=== PATIENT | male | born 1930 | race Caucasian/White ===

== ENCOUNTER 2017-07-24 12:12 | Emergency (ER) | payer OTHER, MEDICARE ==
[2017-07-24 12:39] LABS: #Basophils 0.1 thou/uL (0.0-0.2); #Eosinphils 0.1 thou/uL (0.0-0.7); #Lymphocytes 1.4 thou/uL (1.20-3.40); #Neutrophils 10.1 thou/uL (1.40-6.50); %Basophils 0.6 % (0.0-1.0); %Lymphocytes 11.2 % (21.0-51.0); %Monocytes 7.7 % (0.0-10.0); %Neutrophils 79.5 % (42.0-75.0); Hemoglobin 12.8 g/dL (14.0-18.0); Mean Corpuscular HGB CONC 34.1 g/dL (32.0-36.0); Mean Corpuscular Hemoglobin 31.5 pg (27.0-31.0); Mean Corpuscular Volume 92.5 fl (80.0-94.0); Mean Platelet Volume 7.8 fL (7.4-10.4); Platelet Count 178 thou/uL (130-400); RBC Distribution Width 12.6 % (11.5-14.5); Red Blood Cell (RBC) Count 4.07 mill/uL (4.70-6.10); White Blood Cell (WBC) Count 12.7 thou/uL (4.8-10.8)
[2017-07-24 13:04] LABS: ALT (SGPT) 17 U/L (8-55); AST (SGOT) 17 U/L (5-34); Albumin 3.3 g/dL (3.4-4.8); Alkaline Phosphatase 87 U/L (40-150); Anion Gap 13 mmol/L (10-20); BUN (Urea Nitrogen) 14 mg/dL (8.4-25.7); Bilirubin, Total 1.1 mg/dL (0.2-1.2); CK (CPK) 28 U/L (30-200); Calc. Creatinine Clearance 0 mL/min (70-130); Calcium 8.5 mg/dL (7.8-10.44); Carbon Dioxide 26 mmol/L (23-31); Chloride 101 mmol/L (98-107); Estimated GFR-MDRD 66; Globulin 2.1 g/dL (2.4-3.5); Glucose 73 mg/dL (83-110); Lipase 32 U/L (8-78); Potassium 3.9 mmol/L (3.5-5.1); Protein, Total 5.4 g/dL (5.8-8.1); Sodium 136 mmol/L (136-145)
[2017-07-24 13:20] LABS: CKMB 1.3 ng/mL (0-6.6); Troponin I 0.066 ng/mL (< 0.028)
--- NOTE | 2017-07-24 13:32 | RAD ---
SINGLE VIEW OF CHEST: Date: 07/24/17 COMPARISON: None. HISTORY: Chest pain. FINDINGS/IMPRESSION: Single view of the chest shows a cardiomediastinal silhouette which is upper limits of normal in size . The patient is status post sternotomy. There is no evidence of consolidation, mass, or pleural effu vidal. A sclerotic lesion is seen in the proximal left humerus, which may represent a bone infarction or cartilaginous lesion. POS: [facility]
== END 2017-07-24 14:50 | disposition left against medical advice (07) ==
LOC: ERS 12:12
DX: Z53.21 Procedure and treatment not carried out due to patient leaving prior to being seen by health care provider (principal)
CPT/HCPCS: 71045; 80053; 82553; 83690; 84484; 85025; 93005; 94760

== ENCOUNTER 2017-11-02 16:47 | Emergency (ER) | payer MEDICARE, OTHER ==
[2017-11-02] MEDS ORDERED: traMADol HCl 50 MG TAB ONE (17:30)
[2017-11-02] MEDS ORDERED: Adacel (T-DAP) 0.5 ML VIAL ONE (17:31)
[2017-11-02] MEDS ORDERED: Acetaminophen/Codeine 30-300mg Tablet ONE (18:32)
--- NOTE | 2017-11-02 19:00 | CT ---
HEAD CT WITHOUT CONTRAST: 11/02/2017 HISTORY: Fell out of bed. Trauma. Pain. COMPARISON: 11/28/2016 TECHNIQUE: Serial axial CT imaging is obtained at 5 mm intervals, from the vertex through the skull base, withou t contrast. FINDINGS: There is near complete opacification of the sphenoid sinuses. There is partial opacification of the bilateral ethmoid air cells, and there is complete opacification of the bilateral maxillary sinuses. Paranasal sinus disease is similar when compared to prior imaging. There are areas of marked increa sed density within the paranasal sinus secretions, which could signify chronic sinusitis, inspissated secretions, and/or fungal sinusitis. There is no displaced fracture seen. There is no intracranial hemorrhage, midline shift, or mass effect. There is mild diffuse cerebral volume loss. IMPRESSION: Prominent, stable paranasal sinus opacification. No intracranial hemorrhage or displaced calvarial f racture. POS: [facility]
--- NOTE | 2017-11-02 19:07 | CT ---
CT CERVICAL SPINE: 11/02/2017 PROVIDED CLINICAL HISTORY: Fall. FINDINGS: There is no evidence for fracture or traumatic subluxation. Advanced cervical degenerative changes a re seen. No prevertebral soft tissue swelling is evident. There is material present within the depe ndent portion of the trachea that may reflect secretions or aspiration. The visualized lung apices a ppear clear. IMPRESSION: 1. No evidence for fracture or traumatic subluxation. 2. Secretions versus aspiration in the trachea. POS: [facility]
--- NOTE | 2017-11-02 19:28 | RAD ---
LEFT HAND RADIOGRAPHS THREE VIEWS: 11/02/2017 PROVIDED CLINICAL HISTORY: Left hand pain, status post injury. FINDINGS: There is no evidence for fracture or other acute osseous abnormality. If there is persistent clinica l concern, conservative management and follow-up imaging are advised. IMPRESSION: As above. POS: [facility]
== END 2017-11-02 18:40 | disposition home or self-care (01) ==
LOC: ERS 16:47
DX: S61.411A Laceration without foreign body of right hand, initial encounter (principal); S61.412A Laceration without foreign body of left hand, initial encounter; S61.511A Laceration without foreign body of right wrist, initial encounter; S10.91XA Abrasion of unspecified part of neck, initial encounter; E78.5 Hyperlipidemia, unspecified; I10 Essential (primary) hypertension; F41.9 Anxiety disorder, unspecified; F32.9 Major depressive disorder, single episode, unspecified; Z79.899 Other long term (current) drug therapy; Z79.01 Long term (current) use of anticoagulants; W06.XXXA Fall from bed, initial encounter
CPT/HCPCS: 70450; 72125; 90471; 90715

== ENCOUNTER 2019-06-17 05:53 | Emergency (ER) | payer MEDICARE ==
[2019-06-17] MEDS ORDERED: Ketorolac Tromethamine 30 MG/ML VIAL ONE (06:17)
--- NOTE | 2019-06-17 07:13 | CT ---
CT BRAIN NONCONTRAST: DATE: 06/17/2019 HISTORY: 89-year-old male status post head trauma from fall FINDINGS: There is no evidence of acute intra-axial or extra-axial hemorrhage. There is no midline shift or any other mass effect. There is no extra-axial fluid collection. There is no evidence of obstructive hydrocephalus. Calvarium is intact. Total opacification of bilateral maxillary, sphenoid, all right e thmoid, many of left ethmoid, and right frontal, sinuses similar to 11/02/2017. New finding of opacification of bilateral middle ear cavities mastoid antra, and mastoid air cells. IMPRESSION: 1. No acute intracranial findings. 2. New bilateral otomastoid effusions. 3. Severe opacification of most of the paranasal sinuses, chronic.
--- NOTE | 2019-06-17 07:31 | RAD ---
Radiograph pelvis one view: DATE: 06/17/2019 Time: 7:42 AM HISTORY: 89-year-old male status post acute pelvic trauma from fall. FINDINGS: Pelvic ring appears to be intact with no evidence of grossly displaced fracture and no dislocation. IMPRESSION: No fracture identified.
--- NOTE | 2019-06-17 07:32 | RAD ---
RADIOGRAPH RIGHT HIP 2VIEWS: DATE: 06/17/2019 HISTORY: 89-year-old male with right hip acute traumatic pain from fall FINDINGS: There is no dislocation. No fracture is identified. IMPRESSION: No fracture.
[2019-06-17 08:19] LABS: #Basophils 0.1 thou/uL (0.0-0.2); #Eosinphils 0.2 thou/uL (0.0-0.7); #Lymphocytes 1.9 thou/uL (1.20-3.40); #Monocytes 1.1 thou/uL (0.11-0.59); #Neutrophils 12.3 thou/uL (1.40-6.50); %Basophils 0.3 % (0.0-1.0); %Eosinophils 1.1 % (0.0-10.0); %Lymphocytes 12.3 % (21.0-51.0); %Monocytes 6.8 % (0.0-10.0); %Neutrophils 79.5 % (42.0-75.0); Hemoglobin 13.4 g/dL (14.0-18.0); Mean Corpuscular HGB CONC 34.5 g/dL (32.0-36.0); Mean Corpuscular Hemoglobin 31.5 pg (27.0-31.0); Mean Corpuscular Volume 91.3 fL (78.0-98.0); Mean Platelet Volume 7.7 fL (7.4-10.4); Platelet Count 230 thou/uL (130-400); Red Blood Cell (RBC) Count 4.27 mill/uL (4.70-6.10); White Blood Cell (WBC) Count 15.5 thou/uL (4.8-10.8)
[2019-06-17 08:49] LABS: ALT (SGPT) 15 U/L (8-55); AST (SGOT) 21 U/L (5-34); Albumin 3.5 g/dL (3.4-4.8); Alkaline Phosphatase 128 U/L (40-110); Anion Gap 12 mmol/L (10-20); BUN (Urea Nitrogen) 14 mg/dL (8.4-25.7); Bilirubin, Total 1.3 mg/dL (0.2-1.2); Calc. Creatinine Clearance 0 mL/min (70-130); Calcium 8.9 mg/dL (7.8-10.44); Carbon Dioxide 26 mmol/L (23-31); Chloride 103 mmol/L (98-107); Estimated GFR-MDRD 71; Globulin 2.6 g/dL (2.4-3.5); Glucose 120 mg/dL (83-110); Potassium 3.9 mmol/L (3.5-5.1); Protein, Total 6.1 g/dL (5.8-8.1); Sodium 137 mmol/L (136-145)
--- NOTE | 2019-06-17 09:25 | CT ---
EXAM: 1. CT of the chest with contrast 2. CT of the abdomen and pelvis with contrast 3. Limited CT of the thoracic and lumbosacral spine with contrast HISTORY: Trauma with chest pain, abdominal pain, and back pain. COMPARISON: None TECHNIQUE: 1. Multiple contiguous axial images were obtained in a CT the chest with contrast. Coronal reformats were performed. 2. Multiple contiguous axial images were obtained in a CT of the abdomen and pelvis with contrast. Co sammy reformats were performed. 3. Limited CTs of the thoracic and lumbosacral spines were performed with contrast. Sagittal and shaji nal re-reformats were created based off images obtained in the chest, abdomen, and pelvic CTs. FINDINGS: CT CHEST: Mediastinum: Heart is enlarged in size without focal cardiac abnormality. No hilar or mediastinal lym phadenopathy. No mediastinal hemorrhage. Lungs: No focal infiltrates or nodules. Pleural space: No pneumothorax or pleural effusion. Thoracic bones: No evidence of acute fracture. Thoracic chest wall: Unremarkable. CT ABDOMEN/PELVIS: Peritoneum: No free air or free fluid, or stranding changes. Liver: There is a 5 mm low-density lesion in the left lobe, likely cyst. Gallbladder: Unremarkable. Adrenal glands: Unremarkable. Kidneys: There is a cyst in the left kidney. Spleen: There is a 5 mm low-density lesion in the spleen likely cyst. Pancreas: Unremarkable. Bowel: Colonic diverticulosis. Retroperitoneum: No lymphadenopathy. Pelvis: No focal mass or abnormality. The prostate is enlarged. Pelvic bones: No acute fracture identified. LIMITED CT OF THE THORACIC AND LUMBOSACRAL SPINE: No fracture or subluxation is seen. No prevertebral soft tissue swelling are present. There are posto p changes and metallic hardware at L1-L2 level. 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 IMPRESSION: 1. No evidence of acute intrathoracic abnormality 2. No evidence of acute intra-abdominal or pelvic abnormality 3. No evidence of acute osseous abnormality of the thoracic or lumbosacral spine.
[2019-06-17] MEDS ORDERED: Iopamidol-370 76% 500 ML 1 ML ONE (10:45)
== END 2019-06-17 10:13 | disposition home or self-care (01) ==
LOC: ERS 05:53
DX: S41.012A Laceration without foreign body of left shoulder, initial encounter (principal); S51.812A Laceration without foreign body of left forearm, initial encounter; S00.01XA Abrasion of scalp, initial encounter; M54.5 Low back pain; E78.5 Hyperlipidemia, unspecified; I10 Essential (primary) hypertension; F41.9 Anxiety disorder, unspecified; F32.9 Major depressive disorder, single episode, unspecified; Z79.899 Other long term (current) drug therapy; W01.0XXA Fall on same level from slipping, tripping and stumbling without subsequent striking against object, initial encounter
CPT/HCPCS: 70450; 71260; 72170; 74177; 80053; 85025; 96372; J1885; Q9967

== ENCOUNTER 2020-03-12 17:22 | Emergency (ER) | payer MEDICARE, OTHER ==
[2020-03-12 18:13] LABS: #Lymphocytes 1.5 thou/uL (1.20-3.40); #Monocytes 0.8 thou/uL (0.11-0.59); #Neutrophils 9.1 thou/uL (1.40-6.50); %Basophils 0.1 % (0.0-1.0); %Eosinophils 0.3 % (0.0-10.0); %Lymphocytes 13.3 % (21.0-51.0); %Monocytes 7.2 % (0.0-10.0); %Neutrophils 79.1 % (42.0-75.0); Hemoglobin 12.9 g/dL (14.0-18.0); Mean Corpuscular HGB CONC 32.7 g/dL (32.0-36.0); Mean Corpuscular Hemoglobin 28.9 pg (27.0-31.0); Mean Corpuscular Volume 88.3 fL (78.0-98.0); Mean Platelet Volume 8.8 fL (7.4-10.4); Platelet Count 232 thou/uL (130-400); RBC Distribution Width 13.9 % (11.5-14.5); Red Blood Cell (RBC) Count 4.46 mill/uL (4.70-6.10); White Blood Cell (WBC) Count 11.5 thou/uL (4.8-10.8)
[2020-03-12 18:20] LABS: Bilirubin Negative (Negative); Blood, Urine Negative (Negative); Clarity Clear (Clear); Glucose, Urine (Dipstick) Normal (Negative); Ketone, Urine Negative (Negative); Leukocyte Negative Leu/uL (Negative); Nitrite Negative (Negative); Protein, Urine (Dipstick) 20 mg/dL (Neg-Trace); Specific Gravity, Urine 1.028 (1.002-1.036); Urobilinogen Normal mg/dL (Less than 2); pH, Urine 5.5 (5.0-9.0)
[2020-03-12 18:39] LABS: ALT (SGPT) 9 U/L (8-55); AST (SGOT) 29 U/L (5-34); Albumin 3.5 g/dL (3.4-4.8); Alkaline Phosphatase 150 U/L (40-110); Anion Gap 15 mmol/L (10-20); BUN (Urea Nitrogen) 15 mg/dL (8.4-25.7); Bilirubin, Total 0.8 mg/dL (0.2-1.2); CK (CPK) 23 U/L (30-200); Calc. Creatinine Clearance 0 mL/min (70-130); Calcium 8.5 mg/dL (7.8-10.44); Carbon Dioxide 21 mmol/L (23-31); Chloride 103 mmol/L (98-107); Estimated GFR-MDRD 60; Globulin 2.7 g/dL (2.4-3.5); Glucose 149 mg/dL (83-110); Potassium 4.2 mmol/L (3.5-5.1); Protein, Total 6.2 g/dL (5.8-8.1); Sodium 135 mmol/L (136-145)
--- NOTE | 2020-03-12 18:53 | CT ---
CT BRAIN PERFORMED WITHOUT CONTRAST ENHANCEMENT: Comparison: 06-17-19 History: Altered mental status. FINDINGS: There is generalized ventricular and sulcal prominence. There are no signs of intracerebral hemorrhag e or extraaxial fluid collection. Some mucosal change within the mastoid air cells. There is extensiv e sinus disease, almost complete opacification of the maxillary, ethmoid, sphenoid, and right frontal sinus. IMPRESSION: 1. No acute intracranial abnormalities. 2. Extensive sinus disease. POS: OFF
--- NOTE | 2020-03-12 18:59 | RAD ---
RIGHT KNEE FOUR VIEWS: History: Knee pain. FINDINGS: Bones appear mildly demineralized. There are arthritic changes of the knee. There are no signs of fra cture. IMPRESSION: Diffuse bony demineralization with mild arthritic changes of the knee and atherosclerosis. No acute f indings. POS: OFF
--- NOTE | 2020-03-12 19:32 | RAD ---
PORTABLE CHEST: History: Atrial fibrillation. Altered mental status. Comparison: 07-24-17 FINDINGS: Heart size is enlarged. There are post op sternotomy changes. Patient is rotated on this exam. The ri ght hemidiaphragm is elevated. I do not see any focal infiltrative process. IMPRESSION: Suboptimal positioning. Heart size appears enlarged. I do not see any definite acute lung process. POS: OFF
--- NOTE | 2020-03-13 14:35 | EKG ---
Test Reason : Blood Pressure : / mmHG Vent. Rate : 072 BPM Atrial Rate : 277 BPM P-R Int : 000 ms QRS Dur : 104 ms QT Int : 418 ms P-R-T Axes : 000 -13 129 degrees QTc Int : 457 ms Atrial fibrillation with premature ventricular or aberrantly conducted complexes Incomplete right bundle branch block Minimal voltage criteria for LVH, may be normal variant Abnormal ECG Confirmed by ALBINO CATALAN DO ([id number]), technical writer and editor WAI PRESTON ([id number]) on 03/13/2020 2:34:29 PM Referred By: Confirmed By:ALBINO CATALAN DO
== END 2020-03-12 20:08 | disposition home or self-care (01) ==
LOC: ERS 17:22
DX: R53.1 Weakness (principal); E78.5 Hyperlipidemia, unspecified; I10 Essential (primary) hypertension; F41.9 Anxiety disorder, unspecified; F32.9 Major depressive disorder, single episode, unspecified; Z79.899 Other long term (current) drug therapy
CPT/HCPCS: 36415; 70450; 71045; 80053; 81003; 82550; 83880; 85025; 87086; 93005

== ENCOUNTER 2020-04-14 16:24 | Emergency (ER) | payer OTHER, MEDICARE ==
--- NOTE | 2020-04-14 17:23 | RAD ---
XR Chest 1 View Portable History: Low blood pressure Comparison: None. Findings: Heart size is enlarged. No pneumothorax. Eventration right hemidiaphragm. Chondroid lesion proximal left humerus. No acute osseous abnormality. Impression: Chronic findings. No acute intrathoracic abnormality
[2020-04-14 17:33] LABS: #Basophils 0.1 thou/uL (0.0-0.2); #Eosinphils 0.2 thou/uL (0.0-0.7); #Lymphocytes 2.2 thou/uL (1.20-3.40); #Monocytes 0.7 thou/uL (0.11-0.59); #Neutrophils 3.5 thou/uL (1.40-6.50); %Basophils 0.8 % (0.0-1.0); %Eosinophils 3.3 % (0.0-10.0); %Lymphocytes 32.8 % (21.0-51.0); %Monocytes 10.6 % (0.0-10.0); %Neutrophils 52.5 % (42.0-75.0); Hemoglobin 11.4 g/dL (14.0-18.0); Mean Corpuscular HGB CONC 33.5 g/dL (32.0-36.0); Mean Corpuscular Hemoglobin 29.8 pg (27.0-31.0); Platelet Count 208 thou/uL (130-400); RBC Distribution Width 14.1 % (11.5-14.5); Red Blood Cell (RBC) Count 3.84 mill/uL (4.70-6.10); White Blood Cell (WBC) Count 6.6 thou/uL (4.8-10.8)
[2020-04-14 17:55] LABS: ALT (SGPT) 9 U/L (8-55); AST (SGOT) 18 U/L (5-34); Albumin 3.1 g/dL (3.4-4.8); Alkaline Phosphatase 121 U/L (40-110); Anion Gap 12 mmol/L (10-20); BUN (Urea Nitrogen) 18 mg/dL (8.4-25.7); Bilirubin, Total 0.5 mg/dL (0.2-1.2); Calc. Creatinine Clearance 0 mL/min (70-130); Calcium 7.9 mg/dL (7.8-10.44); Carbon Dioxide 22 mmol/L (23-31); Chloride 108 mmol/L (98-107); Estimated GFR-MDRD 74; Globulin 1.8 g/dL (2.4-3.5); Glucose 124 mg/dL (83-110); Potassium 3.6 mmol/L (3.5-5.1); Protein, Total 4.9 g/dL (5.8-8.1); Sodium 138 mmol/L (136-145)
== END 2020-04-14 19:24 | disposition home or self-care (01) ==
LOC: ERS 16:24
DX: I95.9 Hypotension, unspecified (principal); E78.5 Hyperlipidemia, unspecified; I10 Essential (primary) hypertension; F41.9 Anxiety disorder, unspecified; F32.9 Major depressive disorder, single episode, unspecified; Z95.1 Presence of aortocoronary bypass graft; Z79.899 Other long term (current) drug therapy
CPT/HCPCS: 36415; 71045; 80053; 83605; 84484; 85025; 87040; 93005; 94760

== ENCOUNTER 2020-04-24 13:12 | Emergency (ER) | payer OTHER, MEDICARE ==
[2020-04-24 13:54] LABS: #Basophils 0.1 thou/uL (0.0-0.2); #Eosinphils 0.1 thou/uL (0.0-0.7); #Lymphocytes 2.1 thou/uL (1.20-3.40); #Neutrophils 5.4 thou/uL (1.40-6.50); %Basophils 0.6 % (0.0-1.0); %Eosinophils 1.5 % (0.0-10.0); %Lymphocytes 24.1 % (21.0-51.0); %Monocytes 11.4 % (0.0-10.0); %Neutrophils 62.4 % (42.0-75.0); Hemoglobin 12.6 g/dL (14.0-18.0); Mean Corpuscular Hemoglobin 29.5 pg (27.0-31.0); Mean Corpuscular Volume 86.7 fL (78.0-98.0); Mean Platelet Volume 7.9 fL (7.4-10.4); Platelet Count 199 thou/uL (130-400); RBC Distribution Width 14.3 % (11.5-14.5); Red Blood Cell (RBC) Count 4.26 mill/uL (4.70-6.10); White Blood Cell (WBC) Count 8.7 thou/uL (4.8-10.8)
--- NOTE | 2020-04-24 14:13 | CT ---
Exam: Head CT without contrast HISTORY: Multiple falls. COMPARISON: 03/12/2020 FINDINGS: Hemorrhage: No intraparenchymal hemorrhage or extra-axial hematoma. Brain parenchyma: Cortical gill-white matter differentiation is preserved. No mass effect or midline shift. Basilar cisterns are patent. Ventricular system: Ventricles and sulci are patent and symmetric. Calvarium: Intact. Sinuses and mastoid air cells: Near complete opacification of the sinuses, unchanged. Partial opacifi cation of bilateral mastoid air cells. IMPRESSION: No intracranial post traumatic sequelae.
[2020-04-24 14:14] LABS: ALT (SGPT) 10 U/L (8-55); AST (SGOT) 24 U/L (5-34); Albumin 3.1 g/dL (3.4-4.8); Alkaline Phosphatase 135 U/L (40-110); Anion Gap 13 mmol/L (10-20); BUN (Urea Nitrogen) 14 mg/dL (8.4-25.7); Bilirubin, Total 0.8 mg/dL (0.2-1.2); Calc. Creatinine Clearance 0 mL/min (70-130); Calcium 8.1 mg/dL (7.8-10.44); Carbon Dioxide 26 mmol/L (23-31); Chloride 106 mmol/L (98-107); Estimated GFR-MDRD 69; Globulin 2.3 g/dL (2.4-3.5); Glucose 160 mg/dL (83-110); Potassium 3.9 mmol/L (3.5-5.1); Protein, Total 5.4 g/dL (5.8-8.1); Sodium 141 mmol/L (136-145)
[2020-04-24 14:26] LABS: Bilirubin Negative (Negative); Blood, Urine Negative (Negative); Clarity Clear (Clear); Glucose, Urine (Dipstick) Normal (Negative); Ketone, Urine Negative (Negative); Leukocyte Negative Leu/uL (Negative); Nitrite Negative (Negative); Protein, Urine (Dipstick) 20 mg/dL (Neg-Trace); Specific Gravity, Urine 1.019 (1.002-1.036); Urobilinogen Normal mg/dL (Less than 2); pH, Urine 5.5 (5.0-9.0)
[2020-04-24] MEDS ORDERED: Cefepime 2 GM VIAL ONE (16:18)
[2020-04-24] MEDS ORDERED: Vancomycin 1 GM/200 ML BAG ONE (16:18)
--- NOTE | 2020-04-24 16:54 | RAD ---
Exam:2 views right forearm HISTORY: Fall. Pain. COMPARISON: None FINDINGS: Diffuse bone demineralization. There appears to be a nondisplaced distal radius fracture. T here is intra-articular extension. Calcification of the triangular fibrocartilage complex. There is distal forearm soft tissue swelling. There does not appear to be normal appearing proximal carpal row . Dedicated right wrist radiograph series is recommended. IMPRESSION: 1. Distal radius fracture, nondisplaced. There does appear to be associated intra-articular extension . 2. Incompletely evaluated proximal carpal row. Dedicated right wrist radiograph is recommended.
--- NOTE | 2020-04-24 16:57 | RAD ---
EXAM: 3 views of the right hand COMPARISON: None HISTORY: Hand pain after beginning to take Lyrica. Fall on Thursday. Unable to extend fingers. FINDINGS: 3 views of the hand shows no evidence of acute fracture or dislocation. No degenerative yas nges are seen. Moderate diffuse soft tissue swelling is present. IMPRESSION: Unremarkable exam.
[2020-04-24] MEDS ORDERED: Morphine 4 MG/ML VIAL ONE ×2 (19:36→20:56)
[2020-04-24] MEDS ORDERED: Lorazepam 2 MG/ML VIAL ONE (22:30)
== END 2020-04-24 22:44 | disposition short-term general hospital (02) ==
LOC: ERS 13:12
DX: S52.571A Other intraarticular fracture of lower end of right radius, initial encounter for closed fracture (principal); R41.82 Altered mental status, unspecified; L03.113 Cellulitis of right upper limb; E78.5 Hyperlipidemia, unspecified; I10 Essential (primary) hypertension; E03.9 Hypothyroidism, unspecified; F41.9 Anxiety disorder, unspecified; F32.9 Major depressive disorder, single episode, unspecified; M10.9 Gout, unspecified; Z79.899 Other long term (current) drug therapy; W18.30XA Fall on same level, unspecified, initial encounter
CPT/HCPCS: 29125; 36415; 51701; 70450; 80053; 81003; 83605; 84484; 85025; 87086; 93005; 94760; 96365; 96367; 96375; 96376; J0692; J2060; J2270; J3370

== ENCOUNTER 2020-06-09 21:27 | Inpatient (IN) | payer MEDICARE, OTHER ==
--- NOTE | 2020-06-09 22:13 | RAD ---
Exam: Chest one view HISTORY:Altered mental status. Comparison: 04/14/2020 FINDINGS: Cardiac silhouette:Artery megaly. Sternotomy wires. Aorta: Unremarkable Pulmonary vessels: Normal Costophrenic angles: Small left effusion LUNGS: No masses or consolidation. Pneumothorax: None Osseous abnormalities: Sclerosis involving the proximal left humerus, unchanged. IMPRESSION: Cardiomegaly. Small left effusion. Early for congestive heart failure.
[2020-06-09 22:44] LABS: #Lymphocytes 1.6 thou/uL (1.20-3.40); #Monocytes 0.6 thou/uL (0.11-0.59); %Basophils 0.3 % (0.0-1.0); %Eosinophils 0.5 % (0.0-10.0); %Lymphocytes 19.6 % (21.0-51.0); %Monocytes 7.2 % (0.0-10.0); %Neutrophils 72.3 % (42.0-75.0); Hemoglobin 11.6 g/dL (14.0-18.0); Mean Corpuscular HGB CONC 33.1 g/dL (32.0-36.0); Mean Corpuscular Hemoglobin 29.7 pg (27.0-31.0); Mean Corpuscular Volume 89.8 fL (78.0-98.0); Mean Platelet Volume 7.5 fL (7.4-10.4); Platelet Count 198 thou/uL (130-400); RBC Distribution Width 14.4 % (11.5-14.5); Red Blood Cell (RBC) Count 3.89 mill/uL (4.70-6.10); White Blood Cell (WBC) Count 8.2 thou/uL (4.8-10.8)
[2020-06-09] MEDS ORDERED: Morphine 4 MG/ML VIAL ONE (23:05)
[2020-06-09] MEDS ORDERED: Ondansetron PF 4 MG/2 ML Vial ONE (23:05)
[2020-06-09 23:07] LABS: ALT (SGPT) 20 U/L (8-55); AST (SGOT) 23 U/L (5-34); Albumin 4.1 g/dL (3.4-4.8); Alkaline Phosphatase 140 U/L (40-110); Anion Gap 16 mmol/L (10-20); BUN (Urea Nitrogen) 20 mg/dL (8.4-25.7); Bilirubin, Total 1.1 mg/dL (0.2-1.2); Calc. Creatinine Clearance 0 mL/min (70-130); Calcium 9.4 mg/dL (7.8-10.44); Carbon Dioxide 26 mmol/L (23-31); Chloride 106 mmol/L (98-107); Globulin 2.6 g/dL (2.4-3.5); Glucose 123 mg/dL (83-110); Lipase 18 U/L (8-78); Magnesium 1.9 mg/dL (1.6-2.6); Potassium 4.3 mmol/L (3.5-5.1); Protein, Total 6.7 g/dL (5.8-8.1); Sodium 144 mmol/L (136-145)
[2020-06-09 23:27] LABS: CKMB 3.2 ng/mL (0-6.6)
[2020-06-09] MEDS ORDERED: Aspirin 325 MG TAB ONE (23:48)
[2020-06-09] MEDS ORDERED: Furosemide 40 MG/4 ML VIAL ONE (23:48)
[2020-06-10] MEDS ORDERED: Lorazepam 2 MG/ML VIAL SLOW IVP PRN (01:18)
[2020-06-10] MEDS ORDERED: Lorazepam 2 MG/ML VIAL ONE (01:33)
[2020-06-10] MEDS ORDERED: Guaifenesin DM 100-10/5 ML UDCUP PO PRN (01:37)
[2020-06-10] MEDS ORDERED: Labetalol HCl 100 MG/20 ML VIAL SLOW IVP PRN (01:37)
[2020-06-10] MEDS ORDERED: Ondansetron PF 4 MG/2 ML Vial IVP PRN (01:37)
[2020-06-10] MEDS ORDERED: HYDROcodone/Acetaminophen 5/325 mg Tablet PO PRN (01:37)
[2020-06-10] MEDS ORDERED: Promethazine HCl 12.5 MG in Sodium Chloride 0.9% 50 ML IVPB PRN (01:37)
[2020-06-10] MEDS ORDERED: cloNIDine 0.1 MG TAB PO PRN (01:37)
[2020-06-10] MEDS ORDERED: Acetaminophen 325 MG TAB PO PRN (01:37)
[2020-06-10] MEDS ORDERED: Lorazepam 2 MG/ML VIAL SLOW IVP SCH (01:45)
[2020-06-10] MEDS ORDERED: Electrolyte Replacement Protocol 1 EACH FS SCH (01:45)
--- NOTE | 2020-06-10 01:50 | PDOC.HHP ---
Hospitalist HPI - History of Present Illness Pedal edema History of Present Illness: Patient is an 89 year old male with PMH HTN, HLD, gout, dementia, CAD, CABG, hypothyroidism who presents to ED for altered mental status and pedal edema. Patient has history of dementia and is altered and agitated currently, not able to assist with history. EMS was called to patient house for BLE swelling and abdominal pain, patient was combative initially and has history of dementia. He also complains of worsening abdominal pain and some vomiting this week, and he also complains of pain in the lower back, unsure if this is chronic or acute pain though. He reported earlier some shortness of breath and weakness for last few days. Denies chest pain. He has been attempting to ambulate and is pleasant but nonsensical speech and has short spells of crying in ED, appears at risk for falls. He has COPD, perhaps some faint wheezing on exam. CXR concerning for early CHF exacerbation. Labs significant for TnI 0.03, BNP 930. Patient admitted for suspected CHF exacerbation. UA, CT head and CT a/p reports pending. Hospitalist ROS - Review of Systems ROS unobtainable: due to mental status - Medication Medications: Active Medications Generic Name Dose Route Start Last Admin Trade Name Freq PRN Reason Stop Dose Admin Lorazepam 1 mg 06/10/20 01:45 06/10/20 01:43 Lorazepam 2 Mg/Ml Vial SLOW IVP 06/10/20 04:00 1 mg NOW ARRON Administration allopurinol TABLET : Strength - 100 mg : ORAL Patient Dose: 1 tab(s) Oral once a day (in the morning). atorvastatin TABLET : Strength - 40 mg : ORAL Patient Dose: 1/2 tab(s) Oral once a day (at bedtime).take 1/2 tab every other day. fexofenadine TABLET : Strength - 180 mg : ORAL Patient Dose: 1 tab(s) Oral once a day (at bedtime).PRN as needed for seasonal allergies. finasteride TABLET : Strength - 5 mg : ORAL Patient Dose: 1 tab(s) Oral once a day (in the morning). fluticasone propionate nasal SPRAY, SUSPENSION : Strength - 50 mcg : NASAL Patient Dose: 2 spray(s) Intranasal once a day (in the morning). isosorbide mononitrate TABLET, EXTENDED RELEASE 24 HR : Strength - 120 mg : ORAL Patient Dose: 1 tab(s) Oral once a day (in the morning). donepezil TABLET : Strength - 10 mg : ORAL Patient Dose: 1 tab(s) Oral once a day (in the morning). metoprolol tartrate oral TABLET : Strength - 50 mg : ORAL Patient Dose: 25 mg Oral 2 times a day.1/2 tab 2 times a day. omeprazole CAPSULE,DELAYED RELEASE (ENTERIC COATED) : Strength - 20 mg : ORAL Patient Dose: 2 tab(s) Oral once a day (before a meal). ketotifen fumarate drops : Strength - 0.025 % (0.035 %) : OPHTHALMIC (EYE) Patient Dose: Unknown. sotalol oral tablet : Strength - 80 mg : ORAL Patient Dose: 1 tab(s) Oral once a day. predniSONE tablet : Strength - 20 mg : ORAL Patient Dose: 1 tab(s) Oral once a day. citalopram tablet : Strength - 40 mg : ORAL Patient Dose: 1 tab(s) once a day (in the morning). levothyroxine oral tablet : Strength - 75 mcg : ORAL Patient Dose: 50 mcg Oral once a day. losartan TABLET : Strength - 50 mg : ORAL Patient Dose: 50 mg Oral 2 times a day. nitroglycerin sublingual tablet, sublingual : Strength - 0.4 mg : SUBLINGUAL Patient Dose: Unknown. Lyrica capsule : Strength - 75 mg : ORAL Patient Dose: 2 times a day (before meals). oxyCODONE tablet : Strength - 20 mg : ORAL Patient Dose: 2 times a day. traZODone tablet : Strength - 100 mg : ORAL Patient Dose: once a day PRN. Hospitalist History - Past Medical History Other Medical History: hyperlipidemia, Past medical history includes history of hypertension. GOUT, HYPOTHYROIDISM,. - Past Surgical History Other Surgical History: BYPASS X3, BACK SX,. - Family History Family History: reports: no pertinent history - Social History Alcohol: reports: None Drugs: reports: none - Exam General - other findings: altered mental status, agitated Eye: PERRL, anicteric sclera ENT: normocephalic atraumatic, no oropharyngeal lesions, moist mucosa Neck: supple, symmetric, no JVD, no thyromegaly, no lymphadenopathy, no carotid bruit Heart: RRR, no murmur, no gallops, no rubs, normal peripheral pulses Respiratory: CTAB, no wheezes, no rales, no ronchi, normal chest expansion, no tachypnea, normal percussion Gastrointestinal: soft, non-tender, non-distended, normal bowel sounds, no palpable masses, no hepatomegaly, no splenomegaly, no bruit Extremities: no cyanosis, no clubbing, no edema Skin: normal turgor, no lesions, no rashes Neurological: cranial nerve grossly intact, normal sensation to touch, no weakness, no focal deficits, no new deficit Musculoskeletal: normal tone, normal strength Musculoskeletal - other findings: lower back tenderness Psychiatric: not oriented Psychiatric - other findings: agitated Hospitalist Results - Labs Result Diagrams: 06/09/20 22:33 06/09/20 22:33 Lab results: WBC 8.2 thou/uL (4.8-10.8) 06/09/20 22:33 Hgb 11.6 g/dL (14.0-18.0) L 06/09/20 22:33 Hct 34.9 % (42.0-52.0) L 06/09/20 22:33 MCV 89.8 fL (78.0-98.0) 06/09/20 22:33 Plt Count 198 thou/uL (130-400) 06/09/20 22:33 Neutrophils % 72.3 % (42.0-75.0) 06/09/20 22:33 Sodium 144 mmol/L (136-145) 06/09/20 22:33 Potassium 4.3 mmol/L (3.5-5.1) 06/09/20 22:33 Chloride 106 mmol/L (98-107) 06/09/20 22:33 Carbon Dioxide 26 mmol/L (23-31) 06/09/20 22:33 BUN 20 mg/dL (8.4-25.7) 06/09/20 22:33 Creatinine 1.06 mg/dL (0.7-1.3) 06/09/20 22:33 Glucose 123 mg/dL (83-110) H 06/09/20 22:33 Lactic Acid 1.2 mmol/L (0.5-2.2) 06/09/20 22:33 Calcium 9.4 mg/dL (7.8-10.44) 06/09/20 22:33 Total Bilirubin 1.1 mg/dL (0.2-1.2) 06/09/20 22:33 AST 23 U/L (5-34) 06/09/20 22:33 ALT 20 U/L (8-55) 06/09/20 22:33 Alkaline Phosphatase 140 U/L (40-110) H 06/09/20 22:33 CK-MB (CK-2) 3.2 ng/mL (0-6.6) 06/09/20 22:33 Troponin I 0.032 ng/mL (< 0.028) H 06/09/20 22:33 B-Natriuretic Peptide 930.8 pg/mL (0-100) H 06/09/20 22:33 Serum Total Protein 6.7 g/dL (5.8-8.1) 06/09/20 22:33 Albumin 4.1 g/dL (3.4-4.8) 06/09/20 22: Lipase 18 U/L (8-78) 06/09/20 22:33 Additional comment: imaging reports reviewed - EKG Interpretation EK bpm, atrial fibrillation, no STEMI, QTc 497 Hospitalist H&P A/P - Plan Plan: Patient is an 89 year old male with PMH HTN, HLD, gout, dementia, CAD, CABG, hypothyroidism who presents to ED for altered mental status and pedal edema. # CHF exacerbation - no echo in chart, has CAD and history of CABG, got ASA and lasix in ED. # elevated troponin - suspect due to CHF exacerbation, trend and start lasix, asa, statin and consult cardiology # atrial fibrillation - noted in ED, monitor on telemetry and continue home medications once med rec complete # altered mental status - ddx includes delirium/metabolic encephalopathy, also need CT head and UA to rule out UTI or SDH. CT a/p may also provide answer. some baseline dementia is referred to in ED paperwork. # depression # anxiety # dementia at baseline - follow up UA, B12, CT head and CT a/p - waist restraint, fall precautions - PRN ativan for anxiety symptoms - empiric ceftriaxone, symptoms highly suspicious for UTI and metabolic encephalopathy, difficult to get urine sample and may need straight cath # COPD - suspect this is more CHF than COPD exacerbation, some faint wheezing but edema and BNP and CXR all suggest cardiac etiology of shortness of breath # HTN # HLD # gout - continue home medications once med rec complete DVT/GI ppx presume full code, patient altered mental status currently
[2020-06-10 02:10] LABS: Bilirubin Negative (Negative); Blood, Urine Negative (Negative); Clarity Clear (Clear); Glucose, Urine (Dipstick) Normal (Negative); Ketone, Urine Negative (Negative); Leukocyte Negative Leu/uL (Negative); Nitrite Negative (Negative); Protein, Urine (Dipstick) Negative (Neg-Trace); Specific Gravity, Urine 1.007 (1.002-1.036); Urobilinogen Normal mg/dL (Less than 2)
[2020-06-10] MEDS ORDERED: Haloperidol Lactate 5 MG/ML VIAL SLOW IVP SCH (02:30)
[2020-06-10] MEDS ORDERED: Haloperidol Lactate 5 MG/ML VIAL ONE (02:33)
[2020-06-10 02:51] LABS: Thyroid Stimulating Hormone 6.2511 uIU/mL (0.35-4.94)
[2020-06-10] MEDS ORDERED: cefTRIAXone\\ROCEPHIN 2 GM VIAL ONE (03:13)
[2020-06-10] MEDS: cefTRIAXone\\ROCEPHIN 1 GM in Sodium Chloride 0.9% 100 ML IVPB SCH (03:18)
[2020-06-10 05:45] LABS: Free T4 (Free Thyroxine) 0.99 ng/dL (0.70-1.48)
[2020-06-10] MEDS ORDERED: Magnesium 2 GM/50 ML 2 GM in Premix Bag 1 BAG IVPB SCH (06:30)
[2020-06-10] MEDS ORDERED: Magnesium 2 GM/50 ML BAG (IN WATER) ONE (06:35)
[2020-06-10 07:39] LABS: Troponin I 0.036 ng/mL (< 0.028)
[2020-06-10 07:50] LABS: SARS-CoV-2 MS2 Positive; SARS-CoV-2 N Gene Negative; SARS-CoV-2 S Gene Negative; SARS-CoV-2 by NAA Not Detected (NotDetected); SARS-CoV-2 orf1ab Negative
[2020-06-10] MEDS ORDERED: Metoprolol Tartrate 25 MG TAB PO SCH ×2 (09:00→21:00)
[2020-06-10] MEDS ORDERED: Furosemide 20 MG/2 ML VIAL SLOW IVP SCH (09:00)
[2020-06-10 10:52] LABS: Troponin I 0.034 ng/mL (< 0.028)
--- NOTE | 2020-06-10 12:15 | CT ---
PRELIMINARY REPORT/DIRECT RADIOLOGY/EMERGENCY AFTER HOURS PROCEDURE: EXAM: CT Head Without Intravenous Contrast. CLINICAL HISTORY: AMS, RECENT IV CONTRAST TECHNIQUE: Axial computed tomography images of the head/brain without intravenous contrast. COMPARISON: None. FINDINGS: BRAIN: No acute intraparenchymal hemorrhage. No mass lesion. No CT evidence for acute territorial inf arct. No midline shift or extra-axial collection. Diffuse parenchymal volume loss with commensurate e nlargement CSF spaces. Periventricular white matter hypoattenuation is also noted suggesting mild chr onic microvascular ischemic change. VENTRICLES: No hydrocephalus. ORBITS: The orbits are unremarkable. SINUSES AND MASTOIDS: Bilateral paranasal sinus disease, most severe in the maxillary sinuses. Mastoi d air cells are clear. SOFT TISSUES: No significant facial or scalp soft tissue swelling evident. No radiopaque foreign body is seen. BONES: No acute skull fracture. IMPRESSION: No acute intracranial abnormality. Paranasal sinus disease. ELECTRONICALLY SIGNED BY: aBsim Truong DO Jun 10, 2020 2:37:29 AM ELECTRICAL CONTROLS ASSEMBLER FINAL REPORT CT HEAD WITHOUT CONTRAST: COMPARISON: 04/24/2020. No acute intracranial process. Opacification of the paranasal sinuses is similar to the prior study. I am in agreement with the preliminary report. POS: [facility]
--- NOTE | 2020-06-10 12:17 | CT ---
PRELIMINARY REPORT/DIRECT RADIOLOGY/EMERGENCY AFTER HOURS PROCEDURE: EXAM:CT Abdomen and Pelvis with Intravenous Contrast CLINICAL HISTORY:ABD PAIN TECHNIQUE:Axial computed tomography images of the abdomen and pelvis with intravenous contrast. CONTRAST:With; 70ML ISOVUE 370 COMPARISON:None provided. FINDINGS: LUNG BASES:Moderate bilateral pleural effusions with superimposed atelectasis at the lung bases. Mild patchy consolidation of the right base. Follow up. Moderate cardiomegaly LIVER:Mild hepatic steatosis. GALLBLADDER AND BILE DUCTS:Unremarkable. No calcified stone. No ductal dilation. PANCREAS:Unremarkable. SPLEEN:Unremarkable. ADRENAL GLANDS:Unremarkable. KIDNEYS, URETERS, AND BLADDER:Moderate bilateral renal cortical atrophy. 2.3 cm left renal hypodensity, incompletely characterized most likely a cyst. Consider confirmation s onography or MRI. The urinary bladder is suboptimally distended, apparent wall thickening may be exag gerated secondary to underdistention however correlate for possible inflammation/cystitis, and depend ing on the clinical history, consider follow up to exclude soft tissue infiltration/neoplasia. The urinary bladder apparent wall thickening, questionable for inflammation/cystitis, consider follow up to resolution. STOMACH AND BOWEL:No obstruction. No wall thickening. No CT evidence of colitis or acute diverticulit is. APPENDIX:No CT evidence for appendicitis. PERITONEUM:No free fluid. No free air. LYMPH NODES:No lymphadenopathy. REPRODUCTIVE:Unremarkable as visualized. VASCULATURE:Moderator arterial calcifications compatible with atherosclerosis. BONES:Marked osseous degenerative changes. Left iliac probable bone islands. Mild compression fractur e deformity of L1 with approximately 25 % loss of vertebral body height, chronic appearing. May consi kaycee MRI is warranted. ABDOMINAL WALL AND SOFT TISSUES:Unremarkable. MISCELLANEOUS:Posterior spinal fixation IMPRESSION: 1. Mild patchy consolidation of the right base. Follow up. 2. The urinary bladder apparent wall thickening, questionable for inflammation/cystitis, consider fol low up to resolution. ELECTRONICALLY SIGNED BY: Dalton Love MD Jun 10, 2020 2:03:10 AM GUITAR TEACHER FINAL REPORT CT ABDOMEN AND PELVIS WITH IV CONTRAST: FINDINGS: Images through the lung bases show bilateral effusions and bibasilar atelectasis and/or infiltrate in the lung bases. Liver, spleen, pancreas, and kidneys unremarkable. Some questionable urinary bladder wall thickening , although the bladder is poorly distended. I am in agreement with the preliminary report. POS: [facility]
[2020-06-10] MEDS ORDERED: Loratadine 10 MG TAB PO PRN (13:30)
--- NOTE | 2020-06-10 14:07 | PDOC.HOSPP ---
- Subjective Encounter Date: 06/10/20 Encounter Time: 13:50 Subjective: Patient seen IN the ER holding area room 16. at bedside. Patient more comfortable at this time however he is still disoriented "asking are we done yet" to his . I resumed his home medications. I talked to the nurse there is [facility] [place] As he is a . MOT form signed. - Objective Vital Signs & Weight: Weight Weight 218 lb 4.122 oz Result Diagrams: 06/09/20 22:33 06/09/20 22:33 Hospitalist ROS - Medication Medications: Active Medications Generic Name Dose Route Start Last Admin Trade Name Freq PRN Reason Stop Dose Admin Ceftriaxone Sodium 1 gm/ 100 mls @ 200 mls/hr 06/10/20 02:30 06/10/20 03:18 Sodium Chloride IVPB 100 mls Q24HR ARRON Administration - Exam General Appearance: NAD, awake alert Eye: PERRL ENT: normocephalic atraumatic Neck: supple Heart: RRR, normal peripheral pulses Respiratory: CTAB, normal chest expansion Gastrointestinal: soft, normal bowel sounds Neurological: no focal deficits Psychiatric: not oriented Hosp A/P - Plan 89 year old male with PMH HTN, HLD, gout, dementia, CAD, CABG, hypothyroidism who presents to ED for altered mental status and pedal edema. # CHF exacerbation - -acute on chronic CHF exacerbation - no echo in chart, has CAD and history of CABG, got ASA and lasix in ED. # elevated troponin - suspect due to CHF exacerbation, asa, statin -consulted cardiology -BNP is around 930 will start him on IV diuresis # atrial fibrillation - noted in ED, monitor on telemetry and continue home medications once med rec complete # altered mental status - ddx includes delirium/metabolic encephalopathy, also need CT head and UA to rule out UTI or SDH. CT a/p may also provide answer. some baseline dementia is referred to in ED paperwork. # depression # anxiety # dementia at baseline - follow up UA, B12, CT head and CT a/p - waist restraint, fall precautions - PRN ativan for anxiety symptoms - empiric ceftriaxone, symptoms highly suspicious for UTI and metabolic encephalopathy, difficult to get urine sample and may need straight cath # HTN # HLD # gout Suboptimally controlled hypothyroidism -Now continue with his home regimen of levothyroxine Covid negative patient more comfortable at this time however he is still disoriented "asking are we done yet" to his . I resumed his home medications. I talked to the nurse there is a [facility] [place] as he is a . [facility]. If [facility] not [facility] we can request some of the latest medical records. Until then deferred getting echo here. -Unlikely he may be transferred this Thursday -MOT form signed.
[2020-06-10] MEDS: Aspirin 81 mg Enteric Coated Tablet PO SCH (16:26)
[2020-06-10] MEDS: Famotidine 20 MG TAB PO SCH ×2 (16:26→22:12)
[2020-06-10] MEDS: Polyethylene Glycol 3350 17 GM Packet PO SCH (16:26)
[2020-06-10] MEDS ORDERED: Metoprolol Tartrate 25 MG TAB ONE (18:24)
[2020-06-10] MEDS ORDERED: Labetalol HCl 100 MG/20 ML VIAL ONE (18:30)
[2020-06-10] MEDS ORDERED: Atorvastatin Calcium 20 MG TAB PO SCH (21:00)
[2020-06-10] MEDS: Enoxaparin Sodium 40 MG/0.4 ML SYRINGE SC SCH (22:11)
[2020-06-10] MEDS: Donepezil HCl 10 MG TAB PO SCH (22:11)
[2020-06-10] MEDS: Losartan 25 MG TAB PO SCH (22:12)
[2020-06-10] MEDS: Furosemide 20 MG/2 ML VIAL SLOW IVP SCH (22:12)
[2020-06-11] MEDS: cefTRIAXone\\ROCEPHIN 1 GM in Sodium Chloride 0.9% 100 ML IVPB SCH (01:59)
[2020-06-11 02:13] VITALS: BMI 26.1
[2020-06-11] MEDS ORDERED: Levothyroxine Sodium 50 MCG TAB PO SCH (06:00)
[2020-06-11] MEDS ORDERED: Haloperidol Lactate 5 MG/ML VIAL SLOW IVP SCH (07:45)
[2020-06-11] MEDS: Polyethylene Glycol 3350 17 GM Packet PO SCH (08:26)
[2020-06-11] MEDS: Losartan 25 MG TAB PO SCH ×2 (08:45→20:10)
[2020-06-11] MEDS: Famotidine 20 MG TAB PO SCH ×2 (08:45→20:10)
[2020-06-11] MEDS: Aspirin 81 mg Enteric Coated Tablet PO SCH (08:45)
[2020-06-11] MEDS: Furosemide 20 MG/2 ML VIAL SLOW IVP SCH ×2 (08:46→20:11)
[2020-06-11] MEDS ORDERED: Allopurinol 100 MG TAB PO SCH (09:00)
[2020-06-11] MEDS ORDERED: FLU VACC QS2020-21(65YR UP)/PF 240 MCG/0.7 ML SYRINGE IM ONE (09:00)
[2020-06-11] MEDS ORDERED: Fluticasone Propionate Nasal Spray 16 gm Bottle NASAL SCH (09:00)
[2020-06-11] MEDS ORDERED: Sotalol HCl 80 MG TAB PO SCH (09:00)
[2020-06-11] MEDS ORDERED: Atorvastatin Calcium 20 MG TAB PO SCH (09:00)
[2020-06-11] MEDS ORDERED: Citalopram 20 MG TAB PO SCH (09:00)
[2020-06-11 09:16] LABS: Anion Gap 19 mmol/L (10-20); BUN (Urea Nitrogen) 25 mg/dL (8.4-25.7); Calc. Creatinine Clearance 57 mL/min (70-130); Calcium 8.4 mg/dL (7.8-10.44); Carbon Dioxide 23 mmol/L (23-31); Chloride 106 mmol/L (98-107); Glucose 76 mg/dL (83-110); Magnesium 2.1 mg/dL (1.6-2.6); Sodium 144 mmol/L (136-145)
[2020-06-11 09:30] LABS: #Monocytes 0.8 thou/uL (0.11-0.59); #Neutrophils 5.7 thou/uL (1.40-6.50); %Basophils 0.4 % (0.0-1.0); %Eosinophils 0.5 % (0.0-10.0); %Lymphocytes 23.1 % (21.0-51.0); %Monocytes 9.1 % (0.0-10.0); %Neutrophils 66.9 % (42.0-75.0); Hemoglobin 11.2 g/dL (14.0-18.0); Mean Corpuscular HGB CONC 32.5 g/dL (32.0-36.0); Mean Corpuscular Hemoglobin 30.3 pg (27.0-31.0); Mean Corpuscular Volume 93.1 fL (78.0-98.0); Mean Platelet Volume 8.3 fL (7.4-10.4); Platelet Count 144 thou/uL (130-400); RBC Distribution Width 14.4 % (11.5-14.5); Red Blood Cell (RBC) Count 3.69 mill/uL (4.70-6.10); White Blood Cell (WBC) Count 8.5 thou/uL (4.8-10.8)
--- NOTE | 2020-06-11 11:15 | PDOC.HOSPP ---
- Subjective Encounter Date: 06/11/20 Encounter Time: 10:15 Subjective: barely wakes up to sternal rub, obtunded - Objective Vital Signs & Weight: Vital Signs (12 hours) Temp Pulse Resp BP Pulse Ox 06/11/20 11:02 98.7 F 102 H 20 139/97 H 95 06/11/20 07:35 98.8 F 76 20 136/94 H 100 Weight Weight 192 lb 11.2 oz I&O: 06/10/20 06/11/20 06/12/20 06:59 06:59 06:59 Intake Total 220 Balance 220 Result Diagrams: 06/11/20 08:54 06/11/20 08:54 Hospitalist ROS - Medication Medications: Active Medications Generic Name Dose Route Start Last Admin Trade Name Jose Luisq PRN Reason Stop Dose Admin Allopurinol 100 mg 06/11/20 09:00 06/11/20 08:45 Allopurinol 100 Mg Tab PO 100 mg DAILY ARRON Administration Aspirin 81 mg 06/10/20 09:00 06/11/20 08:45 Aspirin 81 Mg Enteric Coated Tablet PO 81 mg DAILY ARRON Administration Atorvastatin Calcium 20 mg 06/11/20 09:00 06/11/20 08:45 Atorvastatin Calcium 20 Mg Tab PO 20 mg DAILY ARRON Administration Citalopram Hydrobromide 40 mg 06/11/20 09:00 06/11/20 08:45 Citalopram 20 Mg Tab PO 40 mg DAILY ARRON Administration Donepezil HCl 10 mg 06/10/20 21:00 06/10/20 22:11 Donepezil Hcl 10 Mg Tab PO 10 mg HS ARRON Administration Enoxaparin Sodium 40 mg 06/10/20 21:00 06/10/20 22:11 Enoxaparin Sodium 40 Mg/0.4 Ml Syringe SC 40 mg 2100 ARRON Administration Famotidine 20 mg 06/10/20 09:00 06/11/20 08:45 Famotidine 20 Mg Tab PO 20 mg BID ARRON Administration Fluticasone Propionate 2 gm 06/11/20 09:00 06/11/20 08:26 Fluticasone Propionate Nasal Mason 16 Gm Bottle NASAL 1 spr DAILY ARRON Administration Furosemide 20 mg 06/10/20 21:00 06/11/20 08:46 Furosemide 20 Mg/2 Ml Vial SLOW IVP 20 mg BID ARRON Administration Ceftriaxone Sodium 1 gm/ 100 mls @ 200 mls/hr 06/10/20 02:30 06/11/20 01:59 Sodium Chloride IVPB 100 mls Q24HR ARRON Administration Isosorbide Mononitrate 120 mg 06/11/20 09:00 06/11/20 08:45 Isosorbide Mononitrate Er 60 Mg Tab PO 120 mg DAILY ARRON Administration Levothyroxine Sodium 50 mcg 06/11/20 06:00 06/11/20 06:07 Levothyroxine Sodium 50 Mcg Tab PO 50 mcg 0600 ARRON Administration Lorazepam 1 mg 06/10/20 01:18 06/11/20 04:12 Lorazepam 2 Mg/Ml Vial SLOW IVP 1 mg Q4H PRN Administration Anxiety/Agitation Losartan Potassium 50 mg 06/10/20 21:00 06/11/20 08:45 Losartan 25 Mg Tab PO 50 mg BID ARRON Administration Pantoprazole Sodium 40 mg 06/11/20 09:00 06/11/20 10:53 Pantoprazole 40 Mg Tab PO 40 mg DAILY ARRON Administration Polyethylene Glycol 17 gm 06/10/20 09:00 06/11/20 08:26 Polyethylene Glycol 3350 17 Gm Packet PO 17 gm DAILY ARRON Administration Sotalol HCl 80 mg 06/11/20 09:00 06/11/20 08:45 Sotalol Hcl 80 Mg Tab PO 80 mg DAILY ARRON Administration - Exam General Appearance: ill appearing Eye: anicteric sclera ENT: no oropharyngeal lesions, dry oral mucosa Neck: supple, no JVD Heart: no murmur, irregular Respiratory: no wheezes, rales, rhonchi Gastrointestinal: soft, non-tender, non-distended, normal bowel sounds Extremities: no cyanosis, 1+ LE edema Neurological: cranial nerve grossly intact, no focal deficits Hosp A/P (1) Acute exacerbation of CHF (congestive heart failure) Code(s): I50.9 - HEART FAILURE, UNSPECIFIED Status: Acute Qualifiers: Heart failure type: unspecified Qualified Code(s): I50.9 - Heart failure, unspecified (2) Acute metabolic encephalopathy Code(s): G93.41 - METABOLIC ENCEPHALOPATHY Status: Acute (3) Dementia Code(s): F03.90 - UNSPECIFIED DEMENTIA WITHOUT BEHAVIORAL DISTURBANCE Status: Chronic Qualifiers: Dementia type: unspecified type Dementia behavioral disturbance: with behavioral disturbance Qualified Code(s): F03.91 - Unspecified dementia with behavioral disturbance (4) CAD (coronary artery disease) Code(s): I25.10 - ATHSCL HEART DISEASE OF [place] CORONARY ARTERY W/O ANG PCTRS Status: Chronic Qualifiers: Coronary Disease-Associated Artery/Lesion type: bypass graft [place] vs. transplanted heart: [place] heart Associated angina: without angina Qualified Code(s): I25.810 - Atherosclerosis of coronary artery bypass graft(s) without angina pectoris (5) Afib Code(s): I48.91 - UNSPECIFIED ATRIAL FIBRILLATION Status: Chronic Qualifiers: Atrial fibrillation type: paroxysmal Qualified Code(s): I48.0 - Paroxysmal atrial fibrillation (6) HTN (hypertension) Code(s): I10 - ESSENTIAL (PRIMARY) HYPERTENSION Status: Chronic Qualifiers: Hypertension type: essential hypertension Qualified Code(s): I10 - Essential (primary) hypertension (7) Gout Code(s): M10.9 - GOUT, UNSPECIFIED Status: Chronic Qualifiers: Gout site: unspecified site Gout etiology: unspecified cause Chronicity: chronic Presence of tophus: without tophus Qualified Code(s): M1A.9XX0 - Chronic gout, unspecified, without tophus (tophi) (8) Dyslipidemia Code(s): E78.5 - HYPERLIPIDEMIA, UNSPECIFIED Status: Chronic (9) Hypothyroidism Code(s): E03.9 - HYPOTHYROIDISM, UNSPECIFIED Status: Chronic Qualifiers: Hypothyroidism type: unspecified Qualified Code(s): E03.9 - Hypothyroidism, unspecified - Plan was encephalopathic this am when I checked on him (likely due to Haldol given around 8am for agitation this morning) per staff is more awake and ambulated to bathroom and back now blood cs show no growth, not sure if urine cs was taken is on asp, lipitor, ceftriaxone, lasix iv low dose q12h, imdur er, levothyroixi n, duoneb, sotalol, cozaar and celexa will add low dose seroquel at bedtime for agitation covid 19 pcr is -ve afib is rate controlled thyroid labs in am family is [facility], may dc anytime if approved will update later today
[2020-06-11] MEDS: Donepezil HCl 10 MG TAB PO SCH (20:10)
[2020-06-11] MEDS: Enoxaparin Sodium 40 MG/0.4 ML SYRINGE SC SCH (20:11)
[2020-06-11 21:24] VITALS: BP 164/95; TEMP 98.6
--- NOTE | 2020-06-12 13:48 | DIS ---
DATE OF ADMISSION: 06/11/2020 DATE OF DISCHARGE: 06/11/2020 DISCHARGE DISPOSITION: [facility]. PRIMARY DISCHARGE DIAGNOSES: Acute congestive heart failure exacerbation with diastolic dysfunction, acute metabolic encephalopathy. SECONDARY DISCHARGE DIAGNOSES: Atrial fibrillation with initial rapid ventricular response, currently rate controlled; dementia; coronary artery disease; hypertension; gout; dyslipidemia; hypothyroidism. PROCEDURES DONE DURING HOSPITALIZATION: CT brain without contrast done showed no acute intracranial abnormality. CT of the abdomen and pelvis with contrast showed bilateral pleural effusions, questionable urinary bladder wall thickening, but bladder was poorly distended. Echo with 2D Doppler showed EF of 45% to 50%, underlying rhythm was atrial fibrillation. Blood cultures x2, no growth. Urine culture is growing gram-negative jevon less than 25,000 colony-forming units per mL. White count of 8, hemoglobin and hematocrit 11 and 34, platelet count 144, MCV is 93. BUN 25, creatinine 1.1. Troponin-I 0.03. CK-MB 3.2. B12 levels were 640. BNP 930. COVID-19 PCR was not detected on 06/10/2020. DISCHARGE MEDICATIONS: 1. Allopurinol 100 mg p.o. daily. 2. Atorvastatin 20 mg p.o. daily. 3. Celexa 40 mg p.o. daily. 4. Donepezil 10 mg p.o. at bedtime. 5. Finasteride 5 mg p.o. daily. 6. Flonase nasal spray two sprays to each nostril daily. 7. Imdur extended release 120 mg p.o. daily. 8. Levothyroxine 50 mcg p.o. daily. 9. Losartan 50 mg twice daily. 10. Lyrica 75 mg twice daily. 11. Metoprolol 25 mg twice daily. 12. Omeprazole 20 mg p.o. daily. 13. Oxycodone 20 mg twice daily. 14. Prednisone 10 mg p.o. q.a.m. 15. Sotalol 80 mg p.o. daily. 16. Trazodone 100 mg p.o. q.p.m. 17. Ceftriaxone 1 g IV daily for another three more days. ALLERGIES: NO KNOWN DRUG ALLERGIES. DISCHARGE PLAN: The patient is being discharged to [facility] in [place] due to insurance. BRIEF COURSE DURING HOSPITALIZATION: The patient initially was brought to emergency room for confusion, shortness of breath, and increasing swelling in the legs. His initial clinical exam and imaging studies were consistent with CHF exacerbation. He was gently diuresed. The patient had acute metabolic encephalopathy secondary to CHF exacerbation on admission. This is slowly resolving. He is beginning to slowly eat. He had an echo done, which shows EF of 45% to 50%. His blood cultures showed no growth. Urine culture was contaminated. He is hemodynamically stable at present for transfer to [facility]. This is being done in view of the patient's insurance. Please see a [id number] documentation for the day of discharge on [employer]. Job ID: [id number]
--- NOTE | 2020-06-14 06:17 | PQF ---
CLINICAL DOCUMENTATION CLARIFICATION FORM: Dear : Bette Martinez Date / Time: 06/14/20 9856 Please exercise your independent, professional judgment in responding to the clarification form. Clinical indicators are provided on the bottom of this form for your review Please check appropriate box(es): AMI TYPE: [ ] Type 1 WI (STEMI) (please also specify site and artery see below) SITE: [ ] Anterior [ ] Apical [ ] Lateral [ ] Inferior [ ] Posterior [ ] Q Wave [ ] Septal [ ] Unable to Determine [ ] Type 1 WI (NSTEMI) [ x ] Type 2 WI (T2MI) secondary to: [ ] hypertension [ ] arrhythmia [ x ] heart failure [ ] other [ ] Other diagnosis please specify: [ ] Unable to determine Physician Signature: Date/Time: For continuity of documentation, please document condition throughout progress notes and discharge summary. Thank You. 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 ED notes p10 04/09 [X] Troponin likely due to demand and suspect the pt having worsenig CHF ED notes p10 10 [X] elevated troponin suspected due to CHF exacerbation H&P p6 06/09 Dr Pelaez Present Risk Factors Results and Location in Medical Record [X] 89 year-old Male H&P p1 06/09 Dr Pelaez [X] CHF H&P p1 06/09 Dr Pelaez [X] HTN H&P p1 06/09 Dr Pelaez [X] CAD s/p CABG H&P p1 06/09 Dr Pelaez [X] Afib H&P p1 06/09 Dr Pelaez [X] HLD HP 06/09 Present Treatments Results and Location in Medical Record [X] Aspirin 325 mg oral SEP 14 [X] Lipitor 20 mg oral MAR 5 [X] Catapres 0.1mg oral SEP 14 [X] Lovenox 40 mg SC SEP 14 [X] IV Lasix 40 mg SEP 18 CDS/Manufacturing Engineer Signature: Cynthia Moralez Phone #: [phone] Date/Time: 06/14/2020 0617 This is a permanent part of the Medical Record [facility]
== END 2020-06-11 21:10 | disposition short-term general hospital (02) | DRG 280 ==
LOC: ERS 21:27 → ERHOLD 23:44 → 2NO 06-10 20:53 → OBSVTOIN 06-11 07:43
PROVIDERS: ADMIT Internal Medicine; ATTEND Internal Medicine
DX: I11.0 Hypertensive heart disease with heart failure (principal); G93.41 Metabolic encephalopathy; I21.A1 Myocardial infarction type 2; F03.91 Unspecified dementia, unspecified severity, with behavioral disturbance; I50.33 Acute on chronic diastolic (congestive) heart failure; I25.10 Atherosclerotic heart disease of native coronary artery without angina pectoris; E78.5 Hyperlipidemia, unspecified; E03.9 Hypothyroidism, unspecified; Z20.828 Contact with and (suspected) exposure to other viral communicable diseases; F41.9 Anxiety disorder, unspecified; F32.9 Major depressive disorder, single episode, unspecified; I48.0 Paroxysmal atrial fibrillation; J44.9 Chronic obstructive pulmonary disease, unspecified; I08.1 Rheumatic disorders of both mitral and tricuspid valves; M1A.9XX0 Chronic gout, unspecified, without tophus (tophi); Z95.1 Presence of aortocoronary bypass graft; Z79.899 Other long term (current) drug therapy
CPT/HCPCS: 36415; 70450; 71045; 74177; 80048; 80053; 81003; 82553; 82607; 83605; 83690; 83735; 83880; 84439; 84443; 84484; 85025; 87040; 87086; 87635; 93005; 93306; 96372; 96374; 96375; 96376; G0378; J0696; J1630; J1650; J1940; J2060; J2270; J2405; J3475; J3490; U0003